=== PATIENT | female | born 1985 | race Two or more races ===

== ENCOUNTER 2021-03-08 21:26 | Inpatient (IN) | payer MEDICAID, OTHER ==
[~2021-03-08] VITALS: Ht 167.6 cm; Wt 143.0 kg
[2021-03-08] MEDS ORDERED: IBUPROFEN 800 MG TAB PO ONE (22:00)
[2021-03-08] MEDS ORDERED: SODIUM CHLORIDE 0.9% 2,000 ML IV ONE (22:00)
[2021-03-08] MEDS ORDERED: ACETAMINOPHEN 500 MG TAB PO ONE (22:00)
[2021-03-08] MEDS ORDERED: AZITHROMYCIN 500MG/ 250ML 250 ML IV ONE (22:15)
[2021-03-08] MEDS ORDERED: cefTRIAXone 1GM/50ML D5W 50 ML IV ONE (22:15)
[2021-03-08 22:59] LABS: Basophils # (auto) 0 10 ^3/uL (0-0.2); Basophils % (auto) 0.9 % (0.0-2.0); Eosinophils # (auto) 0 10 ^3/uL (0-0.8); Hematocrit 38.4 % (36.0-46.0); Hemoglobin 12.6 g/dL (12.2-16.2); Lymphocytes % (auto) 20.4 % (10.0-50.0); Mean Corpuscular Hgb Conc. 32.9 g/dL (32.0-36.0); Mean Corpuscular Volume 88.1 fL (80.0-100.0); Monocytes # (auto) 0.3 10 ^3/uL (0-1.3); Monocytes % (auto) 6.8 % (0.0-12.0); Neutrophils # (auto) 3.6 10 ^3/uL (1.6-8.6); Neutrophils % (auto) 71.9 % (37.0-80.0); Red Blood Cells 4.36 10^6/uL (4.0-5.20); Red Cell Distribution Width 13.7 % (11.8-14.3)
[2021-03-08 23:15] LABS: Albumin 2.8 g/dL (3.4-5.0); Anion Gap 8 (5-15); Blood Urea Nitrogen 6 mg/dL (7-18); Calcium 7.9 mg/dL (8.5-10.1); Carbon Dioxide 26 mmol/L (21-32); Chloride 103 mmol/L (98-107); Glucose 125 mg/dL (74-106); Magnesium 2.6 mg/dL (1.6-2.6); Potassium 3.6 mmol/L (3.5-5.1); Sodium 137 mmol/L (136-145)
[2021-03-08 23:17] LABS: INR 1.02 (0.9-1.15); Partial Thromboplastin Time 29.6 sec (23.6-33.0)
[2021-03-08 23:21] LABS: Alanine Aminotransferase 42 U/L (13-56); Alkaline Phosphatase 94 U/L (45-117); Aspartate Aminotransferase 36 U/L (15-37); BUN/Creatinine Ratio 8.6; Bilirubin, Total 0.3 mg/dL (0.2-1.0); GFR African American 122 mL/min; GFR Non-African American 101 mL/min
[2021-03-09] MEDS ORDERED: IOHEXOL 350 MG/ML 100ML IJ ONE (02:37)
[2021-03-09] MEDS ORDERED: ACETAMINOPHEN 325 MG TAB PO PRN (06:30)
[2021-03-09] MEDS ORDERED: ONDANSETRON HCL 4 MG/2 ML VIAL IV PRN (06:30)
[2021-03-09] MEDS ORDERED: TEMAZEPAM 15 MG CAP PO PRN (06:30)
[2021-03-09] MEDS ORDERED: NITROGLYCERIN 0.4 MG SL TAB SL PRN (06:30)
[2021-03-09] MEDS ORDERED: MORPHINE SULFATE INJECTION 2 MG/2 ML SYRG IV PRN (06:30)
[2021-03-09] MEDS ORDERED: ALBUTEROL SULF 2.5 MG/0.5ML(0.5%) NEB SOLN NEB PRN (06:30)
[2021-03-09] MEDS ORDERED: IPRATROPIUM BROM 0.5 MG/2.5ML INH SOL NEB PRN (07:30)
[2021-03-09 07:35] VITALS: BP 106/53
[2021-03-09] MEDS: DexAMETHasone SOD PHOS 10MG/1ML VIAL INJ IV SCH (08:52)
[2021-03-09] MEDS: ENOXAPARIN SOD 40 MG/0.4 ML SYRINGE SC SCH (08:53)
[2021-03-09] MEDS: PANTOPRAZOLE 40 MG TAB PO SCH (08:53)
[2021-03-09] MEDS ORDERED: REMDESIVIR PER PHARMACY 0 ML IV SCH (12:30)
[2021-03-09] MEDS: IVERMECTIN 3 MG TAB PO SCH (13:32)
[2021-03-09] MEDS: ASCORBIC ACID 1,000 MG TAB PO SCH (13:32)
[2021-03-09] MEDS: ZINC SULFATE 220mg CAP or TAB PO SCH (13:32)
[2021-03-09] MEDS: CHOLECALCIFEROL (VITD3) 2,000 UNIT CAP/TAB PO SCH (13:32)
[2021-03-09] MEDS ORDERED: REMDESIVIR 200 MG in NS 210ml LOADING DOSE ADULT IV ONE (15:00)
[2021-03-09] MEDS: cefTRIAXone 1GM/50ML D5W 50 ML IV SCH (21:59)
[2021-03-09] MEDS: BUDESONIDE (INHALATION) 180 MCG IH IN SCH (22:02)
[2021-03-09] MEDS: AZITHROMYCIN 500MG/ 250ML 250 ML IV SCH (22:33)
[2021-03-10 09:36] LABS: Basophils # (auto) 0 10 ^3/uL (0-0.2); Basophils % (auto) 0.5 % (0.0-2.0); Eosinophils # (auto) 0 10 ^3/uL (0-0.8); Hematocrit 36.2 % (36.0-46.0); Hemoglobin 11.8 g/dL (12.2-16.2); Lymphocytes # (auto) 0.9 10 ^3/uL (0.4-5.4); Lymphocytes % (auto) 19.6 % (10.0-50.0); Mean Corpuscular Hemoglobin 28.9 pg (28.0-32.0); Mean Corpuscular Hgb Conc. 32.6 g/dL (32.0-36.0); Mean Corpuscular Volume 88.5 fL (80.0-100.0); Monocytes # (auto) 0.3 10 ^3/uL (0-1.3); Monocytes % (auto) 6.3 % (0.0-12.0); Neutrophils # (auto) 3.3 10 ^3/uL (1.6-8.6); Neutrophils % (auto) 73.6 % (37.0-80.0); Red Blood Cells 4.09 10^6/uL (4.0-5.20); Red Cell Distribution Width 13.7 % (11.8-14.3); White Blood Cell 4.5 10^3/uL (4.4-10.8)
[2021-03-10 09:59] LABS: Potassium 4.2 mmol/L (3.5-5.1)
[2021-03-10 10:17] LABS: Albumin 2.3 g/dL (3.4-5.0); BUN/Creatinine Ratio 20.5; Bilirubin, Total 0.2 mg/dL (0.2-1.0); CRP High Sensitivity 11.1 mg/dL (< 0.3); Calcium 8.3 mg/dL (8.5-10.1); Total Protein 7.4 g/dL (6.4-8.2)
[2021-03-10] MEDS: BUDESONIDE (INHALATION) 180 MCG IH IN SCH ×2 (10:26→21:50)
[2021-03-10] MEDS: DexAMETHasone SOD PHOS 10MG/1ML VIAL INJ IV SCH (11:20)
[2021-03-10] MEDS: ZINC SULFATE 220mg CAP or TAB PO SCH (11:21)
[2021-03-10] MEDS: ENOXAPARIN SOD 40 MG/0.4 ML SYRINGE SC SCH (11:21)
[2021-03-10] MEDS: PANTOPRAZOLE 40 MG TAB PO SCH (11:21)
[2021-03-10] MEDS: CHOLECALCIFEROL (VITD3) 2,000 UNIT CAP/TAB PO SCH (11:21)
[2021-03-10] MEDS: ASCORBIC ACID 1,000 MG TAB PO SCH (11:21)
[2021-03-10] MEDS: IVERMECTIN 3 MG TAB PO SCH (11:21)
[2021-03-10] MEDS: REMDESIVIR 100mg 100 MG in SODIUM CHL 0.9% 230 ML IV SCH (15:08)
[2021-03-10 21:55] VITALS: BP 114/63
[2021-03-10] MEDS: cefTRIAXone 1GM/50ML D5W 50 ML IV SCH (22:11)
[2021-03-10] MEDS: AZITHROMYCIN 500MG/ 250ML 250 ML IV SCH (23:08)
[2021-03-11] MEDS: guaiFENesin-DM 100/10mg/5ml SYR PO PRN ×2 (01:49→23:32)
[2021-03-11 05:00] VITALS: BP 107/66
[2021-03-11] MEDS: BUDESONIDE (INHALATION) 180 MCG IH IN SCH ×2 (07:33→22:03)
[2021-03-11 09:00] VITALS: BP 108/67
[2021-03-11] MEDS: IVERMECTIN 3 MG TAB PO SCH (09:46)
[2021-03-11] MEDS: ENOXAPARIN SOD 40 MG/0.4 ML SYRINGE SC SCH (09:46)
[2021-03-11] MEDS: CHOLECALCIFEROL (VITD3) 2,000 UNIT CAP/TAB PO SCH (09:46)
[2021-03-11] MEDS: PANTOPRAZOLE 40 MG TAB PO SCH (09:46)
[2021-03-11] MEDS: DexAMETHasone SOD PHOS 10MG/1ML VIAL INJ IV SCH (09:46)
[2021-03-11] MEDS: ZINC SULFATE 220mg CAP or TAB PO SCH (09:47)
[2021-03-11] MEDS: ASCORBIC ACID 1,000 MG TAB PO SCH (09:47)
[2021-03-11 13:00] VITALS: BP 117/73
[2021-03-11] MEDS: REMDESIVIR 100mg 100 MG in SODIUM CHL 0.9% 230 ML IV SCH (14:57)
[2021-03-11 17:00] VITALS: BP 108/64
[2021-03-11] MEDS: cefTRIAXone 1GM/50ML D5W 50 ML IV SCH (20:31)
[2021-03-11] MEDS: AZITHROMYCIN 500MG/ 250ML 250 ML IV SCH (21:48)
[2021-03-11 22:00] VITALS: BP 126/85
[2021-03-11] MEDS: ALBUTEROL SULF HFA 90MCG INH 200DOSE IN PRN (22:03)
[2021-03-12 05:19] VITALS: BP 137/67
[2021-03-12] MEDS: BUDESONIDE (INHALATION) 180 MCG IH IN SCH ×4 (06:40→20:08)
[2021-03-12] MEDS: ALBUTEROL SULF HFA 90MCG INH 200DOSE IN PRN ×2 (06:40→08:55)
[2021-03-12] MEDS ORDERED: MORPHINE SULFATE INJECTION 2 MG/2 ML SYRG IV ONE (07:15)
[2021-03-12] MEDS ORDERED: LORazepam 2MG/ML-1ML VIAL IV ONE (07:15)
[2021-03-12 09:00] VITALS: BP 133/56
[2021-03-12] MEDS: IVERMECTIN 3 MG TAB PO SCH (09:37)
[2021-03-12] MEDS: ASCORBIC ACID 1,000 MG TAB PO SCH (09:37)
[2021-03-12] MEDS: ENOXAPARIN SOD 40 MG/0.4 ML SYRINGE SC SCH (09:37)
[2021-03-12] MEDS: DexAMETHasone SOD PHOS 10MG/1ML VIAL INJ IV SCH (09:37)
[2021-03-12] MEDS: CHOLECALCIFEROL (VITD3) 2,000 UNIT CAP/TAB PO SCH (09:37)
[2021-03-12] MEDS: PANTOPRAZOLE 40 MG TAB PO SCH (09:37)
[2021-03-12] MEDS: ZINC SULFATE 220mg CAP or TAB PO SCH (10:32)
[2021-03-12] MEDS: ALPRAZolam 0.25 MG TAB PO SCH ×2 (14:43→21:29)
[2021-03-12] MEDS: REMDESIVIR 100mg 100 MG in SODIUM CHL 0.9% 230 ML IV SCH (15:10)
[2021-03-12 16:20] VITALS: BP 133/56
[2021-03-12 17:00] VITALS: BP 136/54
[2021-03-12] MEDS: ALBUTEROL SULF HFA 90MCG INH 200DOSE IN SCH ×2 (18:00→19:59)
[2021-03-12] MEDS: cefTRIAXone 1GM/50ML D5W 50 ML IV SCH (21:29)
[2021-03-12 22:00] VITALS: BP 134/68
[2021-03-12] MEDS: AZITHROMYCIN 500MG/ 250ML 250 ML IV SCH (22:24)
[2021-03-13 05:00] VITALS: BP 149/77
[2021-03-13 06:46] LABS: Basophils # (auto) 0 10 ^3/uL (0-0.2); Basophils % (auto) 0.3 % (0.0-2.0); Eosinophils # (auto) 0 10 ^3/uL (0-0.8); Eosinophils % (auto) 0.7 % (0.0-7.0); Hematocrit 35.4 % (36.0-46.0); Hemoglobin 11.9 g/dL (12.2-16.2); Lymphocytes # (auto) 1.7 10 ^3/uL (0.4-5.4); Lymphocytes % (auto) 28.5 % (10.0-50.0); Mean Corpuscular Hemoglobin 29.4 pg (28.0-32.0); Mean Corpuscular Hgb Conc. 33.6 g/dL (32.0-36.0); Mean Corpuscular Volume 87.7 fL (80.0-100.0); Monocytes # (auto) 0.5 10 ^3/uL (0-1.3); Monocytes % (auto) 8.6 % (0.0-12.0); Neutrophils # (auto) 3.7 10 ^3/uL (1.6-8.6); Neutrophils % (auto) 61.9 % (37.0-80.0); Nucleated Red Blood Cells % 0.1 %; Red Blood Cells 4.04 10^6/uL (4.0-5.20); Red Cell Distribution Width 13.3 % (11.8-14.3)
[2021-03-13] MEDS: ALBUTEROL SULF HFA 90MCG INH 200DOSE IN SCH ×4 (07:09→19:50)
[2021-03-13 07:10] LABS: Albumin 2.2 g/dL (3.4-5.0); Calcium 8.1 mg/dL (8.5-10.1); Potassium 3.9 mmol/L (3.5-5.1)
[2021-03-13] MEDS: BUDESONIDE (INHALATION) 180 MCG IH IN SCH ×2 (07:10→22:12)
[2021-03-13 07:16] LABS: BUN/Creatinine Ratio 19.6; Bilirubin, Total 0.3 mg/dL (0.2-1.0); Total Protein 6.7 g/dL (6.4-8.2)
[2021-03-13 09:00] VITALS: BP 118/74
[2021-03-13] MEDS: DexAMETHasone SOD PHOS 10MG/1ML VIAL INJ IV SCH (10:08)
[2021-03-13] MEDS: ZINC SULFATE 220mg CAP or TAB PO SCH (10:08)
[2021-03-13] MEDS: ASCORBIC ACID 1,000 MG TAB PO SCH (10:09)
[2021-03-13] MEDS: CHOLECALCIFEROL (VITD3) 2,000 UNIT CAP/TAB PO SCH (10:09)
[2021-03-13] MEDS: IVERMECTIN 3 MG TAB PO SCH (10:09)
[2021-03-13] MEDS: ENOXAPARIN SOD 40 MG/0.4 ML SYRINGE SC SCH (10:09)
[2021-03-13] MEDS: ALPRAZolam 0.25 MG TAB PO SCH ×2 (10:09→21:30)
[2021-03-13] MEDS: PANTOPRAZOLE 40 MG TAB PO SCH (10:09)
[2021-03-13 13:00] VITALS: BP 107/46
[2021-03-13 17:00] VITALS: BP 118/67
[2021-03-13] MEDS: REMDESIVIR 100mg 100 MG in SODIUM CHL 0.9% 230 ML IV SCH (18:25)
[2021-03-13] MEDS: cefTRIAXone 1GM/50ML D5W 50 ML IV SCH (20:54)
[2021-03-13] MEDS: AZITHROMYCIN 500MG/ 250ML 250 ML IV SCH (21:30)
[2021-03-13 22:00] VITALS: BP 127/62
[2021-03-14 05:00] VITALS: BP 127/74
[2021-03-14 05:32] LABS: Basophils # (auto) 0 10 ^3/uL (0-0.2); Basophils % (auto) 0.1 % (0.0-2.0); Eosinophils # (auto) 0 10 ^3/uL (0-0.8); Hematocrit 38.3 % (36.0-46.0); Hemoglobin 12.6 g/dL (12.2-16.2); Lymphocytes # (auto) 0.9 10 ^3/uL (0.4-5.4); Lymphocytes % (auto) 19.7 % (10.0-50.0); Mean Corpuscular Hemoglobin 29.1 pg (28.0-32.0); Monocytes # (auto) 0.4 10 ^3/uL (0-1.3); Monocytes % (auto) 7.7 % (0.0-12.0); Neutrophils # (auto) 3.4 10 ^3/uL (1.6-8.6); Neutrophils % (auto) 71.5 % (37.0-80.0); Nucleated Red Blood Cells % 0.1 %; Red Blood Cells 4.35 10^6/uL (4.0-5.20); Red Cell Distribution Width 13.4 % (11.8-14.3); White Blood Cell 4.8 10^3/uL (4.4-10.8)
[2021-03-14 06:01] LABS: Potassium 4.2 mmol/L (3.5-5.1)
[2021-03-14 06:10] LABS: Albumin 2.5 g/dL (3.4-5.0); BUN/Creatinine Ratio 17.5; Bilirubin, Total 0.2 mg/dL (0.2-1.0); Calcium 8.7 mg/dL (8.5-10.1); Total Protein 7.5 g/dL (6.4-8.2)
[2021-03-14] MEDS: BUDESONIDE (INHALATION) 180 MCG IH IN SCH ×2 (06:45→21:06)
[2021-03-14] MEDS: ALBUTEROL SULF HFA 90MCG INH 200DOSE IN SCH ×4 (06:45→21:06)
[2021-03-14 09:00] VITALS: BP 140/83
[2021-03-14] MEDS: DexAMETHasone SOD PHOS 10MG/1ML VIAL INJ IV SCH (10:44)
[2021-03-14] MEDS: ZINC SULFATE 220mg CAP or TAB PO SCH (10:44)
[2021-03-14] MEDS: ASCORBIC ACID 1,000 MG TAB PO SCH (10:45)
[2021-03-14] MEDS: PANTOPRAZOLE 40 MG TAB PO SCH (10:45)
[2021-03-14] MEDS: ALPRAZolam 0.25 MG TAB PO SCH ×2 (10:45→22:00)
[2021-03-14] MEDS: CHOLECALCIFEROL (VITD3) 2,000 UNIT CAP/TAB PO SCH (10:45)
[2021-03-14] MEDS: ENOXAPARIN SOD 40 MG/0.4 ML SYRINGE SC SCH (10:46)
[2021-03-14 13:00] VITALS: BP 131/75
[2021-03-14 16:55] VITALS: BP 111/63
[2021-03-14] MEDS: cefTRIAXone 1GM/50ML D5W 50 ML IV SCH (20:45)
[2021-03-14 22:00] VITALS: BP_SYST 122; BP_DIAS 106; BP_DIAS 65
[2021-03-14] MEDS: AZITHROMYCIN 500MG/ 250ML 250 ML IV SCH (22:00)
[2021-03-15 05:00] VITALS: BP 106/54
[2021-03-15 05:31] LABS: Basophils # (auto) 0 10 ^3/uL (0-0.2); Basophils % (auto) 0.4 % (0.0-2.0); Eosinophils # (auto) 0.1 10 ^3/uL (0-0.8); Eosinophils % (auto) 2.5 % (0.0-7.0); Hematocrit 35.3 % (36.0-46.0); Lymphocytes # (auto) 1.2 10 ^3/uL (0.4-5.4); Lymphocytes % (auto) 24.1 % (10.0-50.0); Mean Corpuscular Hemoglobin 29.4 pg (28.0-32.0); Mean Corpuscular Volume 86.7 fL (80.0-100.0); Monocytes # (auto) 0.5 10 ^3/uL (0-1.3); Monocytes % (auto) 10.3 % (0.0-12.0); Neutrophils # (auto) 3.2 10 ^3/uL (1.6-8.6); Neutrophils % (auto) 62.7 % (37.0-80.0); Nucleated Red Blood Cells % 0.1 %; Red Blood Cells 4.08 10^6/uL (4.0-5.20); Red Cell Distribution Width 13.1 % (11.8-14.3); White Blood Cell 5.2 10^3/uL (4.4-10.8)
[2021-03-15 05:56] LABS: Albumin 2.4 g/dL (3.4-5.0); Calcium 8.6 mg/dL (8.5-10.1)
[2021-03-15 05:59] LABS: BUN/Creatinine Ratio 23.9; Bilirubin, Total 0.3 mg/dL (0.2-1.0); Total Protein 6.8 g/dL (6.4-8.2)
[2021-03-15 09:00] VITALS: BP 115/67
[2021-03-15] MEDS: DexAMETHasone SOD PHOS 10MG/1ML VIAL INJ IV SCH (09:27)
[2021-03-15] MEDS: ZINC SULFATE 220mg CAP or TAB PO SCH (09:27)
[2021-03-15] MEDS: ASCORBIC ACID 1,000 MG TAB PO SCH (09:27)
[2021-03-15] MEDS: PANTOPRAZOLE 40 MG TAB PO SCH (09:27)
[2021-03-15] MEDS: ENOXAPARIN SOD 40 MG/0.4 ML SYRINGE SC SCH (09:28)
[2021-03-15] MEDS: ALPRAZolam 0.25 MG TAB PO SCH ×2 (09:28→21:09)
[2021-03-15] MEDS: ALBUTEROL SULF HFA 90MCG INH 200DOSE IN SCH ×3 (09:45→21:45)
[2021-03-15] MEDS: BUDESONIDE (INHALATION) 180 MCG IH IN SCH ×2 (09:46→21:45)
[2021-03-15 10:31] VITALS: BP 115/67
[2021-03-15 13:00] VITALS: BP 121/70
[2021-03-15] MEDS: CHOLECALCIFEROL (VITD3) 2,000 UNIT CAP/TAB PO SCH (13:25)
[2021-03-15 17:00] VITALS: BP 95/60
[2021-03-15] MEDS: cefTRIAXone 1GM/50ML D5W 50 ML IV SCH (20:35)
[2021-03-15] MEDS: AZITHROMYCIN 500MG/ 250ML 250 ML IV SCH (21:08)
[2021-03-15 21:30] VITALS: BP 115/74
[2021-03-16 05:00] VITALS: BP 131/78
[2021-03-16 05:52] LABS: Basophils # (auto) 0 10 ^3/uL (0-0.2); Basophils % (auto) 0.7 % (0.0-2.0); Eosinophils # (auto) 0.1 10 ^3/uL (0-0.8); Eosinophils % (auto) 2.3 % (0.0-7.0); Hematocrit 36.9 % (36.0-46.0); Hemoglobin 12.2 g/dL (12.2-16.2); Lymphocytes # (auto) 1.6 10 ^3/uL (0.4-5.4); Lymphocytes % (auto) 24.5 % (10.0-50.0); Mean Corpuscular Hemoglobin 29.1 pg (28.0-32.0); Mean Corpuscular Volume 88.4 fL (80.0-100.0); Monocytes # (auto) 0.6 10 ^3/uL (0-1.3); Monocytes % (auto) 9.1 % (0.0-12.0); Neutrophils # (auto) 4.1 10 ^3/uL (1.6-8.6); Neutrophils % (auto) 63.4 % (37.0-80.0); Nucleated Red Blood Cells % 0.2 %; Red Blood Cells 4.18 10^6/uL (4.0-5.20); Red Cell Distribution Width 13.2 % (11.8-14.3); White Blood Cell 6.5 10^3/uL (4.4-10.8)
[2021-03-16 06:09] LABS: Calcium 8.4 mg/dL (8.5-10.1); Potassium 4.1 mmol/L (3.5-5.1)
[2021-03-16 06:17] LABS: Albumin 2.3 g/dL (3.4-5.0); Bilirubin, Total 0.2 mg/dL (0.2-1.0); Total Protein 6.6 g/dL (6.4-8.2)
[2021-03-16] MEDS: BUDESONIDE (INHALATION) 180 MCG IH IN SCH ×2 (07:33→22:00)
[2021-03-16] MEDS: ALBUTEROL SULF HFA 90MCG INH 200DOSE IN SCH ×3 (07:34→22:00)
[2021-03-16 08:00] VITALS: BP 131/70
[2021-03-16 09:00] VITALS: BP 131/70
[2021-03-16] MEDS: CHOLECALCIFEROL (VITD3) 2,000 UNIT CAP/TAB PO SCH (11:32)
[2021-03-16] MEDS: ENOXAPARIN SOD 40 MG/0.4 ML SYRINGE SC SCH (11:32)
[2021-03-16] MEDS: DexAMETHasone SOD PHOS 10MG/1ML VIAL INJ IV SCH (11:33)
[2021-03-16] MEDS: PANTOPRAZOLE 40 MG TAB PO SCH (11:33)
[2021-03-16] MEDS: ASCORBIC ACID 1,000 MG TAB PO SCH (11:33)
[2021-03-16] MEDS: ZINC SULFATE 220mg CAP or TAB PO SCH (11:33)
[2021-03-16] MEDS: ALPRAZolam 0.25 MG TAB PO SCH ×2 (11:34→22:32)
[2021-03-16 13:00] VITALS: BP 129/75
[2021-03-16 17:00] VITALS: BP 96/46
[2021-03-16 22:00] VITALS: BP 115/60
[2021-03-16] MEDS: cefTRIAXone 1GM/50ML D5W 50 ML IV SCH (22:32)
[2021-03-16] MEDS: AZITHROMYCIN 500MG/ 250ML 250 ML IV SCH (23:20)
[2021-03-17 05:00] VITALS: BP 123/77
[2021-03-17] MEDS: BUDESONIDE (INHALATION) 180 MCG IH IN SCH ×2 (08:32→19:44)
[2021-03-17] MEDS: ALBUTEROL SULF HFA 90MCG INH 200DOSE IN SCH ×2 (08:32→19:44)
[2021-03-17 09:00] VITALS: BP 117/68
[2021-03-17] MEDS: ALPRAZolam 0.25 MG TAB PO SCH (09:47)
[2021-03-17] MEDS: CHOLECALCIFEROL (VITD3) 2,000 UNIT CAP/TAB PO SCH (09:47)
[2021-03-17] MEDS: ASCORBIC ACID 1,000 MG TAB PO SCH (09:47)
[2021-03-17] MEDS: DexAMETHasone SOD PHOS 10MG/1ML VIAL INJ IV SCH (09:47)
[2021-03-17] MEDS: ZINC SULFATE 220mg CAP or TAB PO SCH (09:47)
[2021-03-17] MEDS: PANTOPRAZOLE 40 MG TAB PO SCH (09:47)
[2021-03-17] MEDS: ENOXAPARIN SOD 40 MG/0.4 ML SYRINGE SC SCH (09:48)
[2021-03-17 13:00] VITALS: BP 115/77
[2021-03-17] MEDS ORDERED: ALBUAER3 IN (16:06)
[2021-03-17 16:47] VITALS: BP 115/77
[2021-03-17 17:00] VITALS: BP 127/66
== END 2021-03-17 21:12 | disposition home health service (06) | DRG 137 ==
LOC: ER 21:26 → TELE 03-09 06:24 → TELE-EAST 03-10 21:55
PROVIDERS: ADMIT Nurse Practitioner; ATTEND Internal Medicine
PROC: XW033E5 Introduction of Remdesivir Anti-infective into Peripheral Vein, Percutaneous Approach, New Technology Group 5 (ICD-10-PCS; principal; 2021-03-09)
PROC: 05HF33Z Insertion of Infusion Device into Left Cephalic Vein, Percutaneous Approach (ICD-10-PCS; 2021-03-09)
PROC: B54NZZA Ultrasonography of Left Upper Extremity Veins, Guidance (ICD-10-PCS; 2021-03-09)
DX: U07.1 COVID-19 (principal); J96.01 Acute respiratory failure with hypoxia; J12.82 Pneumonia due to coronavirus disease 2019; Z68.43 Body mass index [BMI] 50.0-59.9, adult; J15.9 Unspecified bacterial pneumonia; R91.1 Solitary pulmonary nodule; J98.11 Atelectasis; F41.9 Anxiety disorder, unspecified; E66.01 Morbid (severe) obesity due to excess calories; Z71.3 Dietary counseling and surveillance
CPT/HCPCS: 36415; 36600; 71045; 71275; 80053; 82728; 82805; 83615; 83735; 83880; 84484; 84702; 85025; 85379; 85610; 85730; 86141; 87426; 93005; 93970; 94640; 96365; 96366; 96368; G0378; J0696; J1100